=== PATIENT | female | born 1965 | race Caucasian/White ===

== ENCOUNTER → 2020-10-02 | Day surgery (SDC) | payer OTHER ==
[~2020-10-02] MED LIST: ADVIL200 MG PO; FEOSOL325 MG PO; FLEXERIL5 MG PO; IMODIUM2 MG PO; METRONIDAZOLE500 MG PO; NORCO 5-325 TA1 EACH PO; PROTONIX 40MG T40 MG PO; TELMISARTAN-AM1 EACH PO; TOPROL XL100 MG PO; ZOFRAN4 M1 PO
== END | disposition home or self-care (01) ==
LOC: FAS 07:55
DX: Z12.11 Encounter for screening for malignant neoplasm of colon (principal); K63.5 Polyp of colon; Z80.0 Family history of malignant neoplasm of digestive organs; Z88.1 Allergy status to other antibiotic agents; K21.9 Gastro-esophageal reflux disease without esophagitis; I10 Essential (primary) hypertension
CPT/HCPCS: J2704; J7120

== ENCOUNTER 2021-03-20 11:44 | Emergency (ER) | payer OTHER ==
[~2021-03-20 11:44] MED LIST changes: -IMODIUM2 MG PO; -METRONIDAZOLE500 MG PO; -NORCO 5-325 TA1 EACH PO; -ZOFRAN4 M1 PO
[2021-03-20 12:41] LABS: BASOPHIL 0.9 % (0-2); HCT 44.3 % (37.0-47.0); HGB 14.3 g/dl (12.5-16.0); LYMPHOCYTE 21.2 % (15-48); MCH 27.7 pg (25.0-31.0); MCHC 32.3 g/dL (32.0-36.0); MCV 85.7 fL (78.0-100.0); MONOCYTE 5.1 % (0-12); MPV 11.1 fL (6.0-9.5); NEUTROPHIL 71.2 % (41-80); NRBC 0; PLT 367 K/uL (150-400); RBC 5.17 M/uL (4.20-5.40); RDW 12.6 % (11.5-14.0); WBC 10.7 K/uL (4.0-10.5)
[2021-03-20 12:55] LABS: ALBUMIN 3.5 g/dL (3.4-5.0); BILIRUBIN - TOTAL 0.3 mg/dL (0.2-1.0); BUN/CREAT RATIO (CALC) 11.5 RATIO; CREATININE 0.78 mg/dL (0.51-0.95); GLOBULIN (CALCULATION) 3.8 g/dL; POTASSIUM 3.3 mmol/L (3.5-5.1); TOTAL PROTEIN 7.3 g/dL (6.4-8.2)
[2021-03-20 14:15] LABS: CORONAVIRUS 2019 SARS-COV-2 NEGATIVE (NEGATIVE); INFLUENZA A NAA NEGATIVE (NEGATIVE)
[2021-03-20] MEDS ORDERED: IMODIUM2 MG PO (17:52)
[2021-03-20] MEDS ORDERED: NORCO 5-325 TA1 EACH PO (17:52)
[2021-03-20] MEDS ORDERED: METRONIDAZOLE500 MG PO (17:52)
[2021-03-20] MEDS ORDERED: ZOFRAN4 M1 PO (17:52)
[2021-05-01] MEDS ORDERED: PERCOCET 5-3251 EACH PO (12:12)
== END 2021-03-20 18:56 | disposition home or self-care (01) ==
LOC: FER 11:44
PROVIDERS: Emergency Medicine
DX: K80.20 Calculus of gallbladder without cholecystitis without obstruction (principal); R19.7 Diarrhea, unspecified; Z88.1 Allergy status to other antibiotic agents; Z20.822 Contact with and (suspected) exposure to COVID-19
CPT/HCPCS: 36415; 71045; 76705; 80053; 82150; 83690; 83735; 85025; 93005; J1170; J2405; J3475; J7030; Q9967; U0002

== ENCOUNTER → 2021-05-01 | Day surgery (SDC) | payer OTHER ==
[~2021-05-01] VITALS: Ht 158.8 cm; Wt 98.0 kg
[~2021-05-01] MED LIST changes: +IMODIUM2 MG PO; +METRONIDAZOLE500 MG PO; +NORCO 5-325 TA1 EACH PO; +PERCOCET 5-3251 EACH PO; +ZOFRAN4 M1 PO
[2021-05-01 10:07] LABS: CREATININE 0.84 mg/dL (0.51-0.95); POTASSIUM 5.1 mmol/L (3.5-5.1)
== END | disposition home or self-care (01) ==
LOC: FAS 08:00
PROVIDERS: Anesthesiology
DX: K80.10 Calculus of gallbladder with chronic cholecystitis without obstruction (principal); K21.9 Gastro-esophageal reflux disease without esophagitis; I10 Essential (primary) hypertension; E78.5 Hyperlipidemia, unspecified; F32.9 Major depressive disorder, single episode, unspecified; G47.33 Obstructive sleep apnea (adult) (pediatric); M06.9 Rheumatoid arthritis, unspecified; J45.909 Unspecified asthma, uncomplicated; Z86.010 Personal history of colon polyps; Z88.1 Allergy status to other antibiotic agents; Z79.899 Other long term (current) drug therapy
CPT/HCPCS: 36415; 80048; J0295; J1100; J1170; J1885; J2250; J2405; J2704; J2710; J3010; J7120